=== PATIENT | female | born 1950 | race Caucasian/White ===

== ENCOUNTER → 2016-09-04 | Outpatient (CLI) | payer MEDICARE ==
[~2016-09-04] MED LIST: ALEVE 220MG220 MG PO; ASPI325T6 PO; CELEBREX 200MG200 MG PO; FERROUS SU325 MG/TAB PO; FOLIC ACID0.4 MG PO; NORCO 325 MG-7.1 TAB PO; OMEGA 31000 MG; OSCAL 500 TAB500 MG PO; PREMARIN 0.9MG0.9 MG PO; SENOKOT S 50 MG1 TAB PO; ULTRAM 50MG TAB50 MG PO; VITAMIN C500 MG PO; VITAMIN D 400400 IU PO
== END ==
LOC: MC.RAD 10:12
DX: Z12.31 Encounter for screening mammogram for malignant neoplasm of breast (principal); R92.8 Other abnormal and inconclusive findings on diagnostic imaging of breast; Z80.3 Family history of malignant neoplasm of breast

== ENCOUNTER → 2016-09-11 | Outpatient (CLI) | payer MEDICARE | LOC: MC.RAD 10:30 | DX: R92.8 Other abnormal and inconclusive findings on diagnostic imaging of breast (principal); Z80.3 Family history of malignant neoplasm of breast ==

== ENCOUNTER 2016-09-15 09:16 | Inpatient (IN) | payer MEDICARE, OTHER ==
[~2016-09-15] VITALS: Ht 162.6 cm; Wt 61.2 kg
[2016-10-10] MEDS ORDERED: ALEVE 220MG220 MG PO (12:30)
[2016-10-10] MEDS ORDERED: OSCAL 500 TAB500 MG PO (12:30)
[2016-10-10] MEDS ORDERED: OMEGA 31000 MG (12:31)
[2016-10-10] MEDS ORDERED: PREMARIN 0.9MG0.9 MG PO (12:31)
[2016-10-10] MEDS ORDERED: VITAMIN D 400400 IU PO (12:31)
[2016-10-13] VITALS (11 sets, daily range): BP systolic 84–118; BP diastolic 44–77; PULSE 56–78; TEMP 97.1–98.6
[2016-10-13] MEDS ORDERED: VITAMIN C500 MG PO (06:09)
[2016-10-13] MEDS ORDERED: FERROUS SU325 MG/TAB PO (06:09)
[2016-10-13] MEDS ORDERED: FOLIC ACID0.4 MG PO (06:10)
[2016-10-14] VITALS (7 sets, daily range): BP systolic 92–125; BP diastolic 39–60; PULSE 63–85; TEMP 97.4–98.5
[2016-10-14 07:18] LABS: HEMATOCRIT 30.8 % (37.0-47.0); HEMOGLOBIN 9.9 g/dl (12.5-16.0)
[2016-10-15 04:48] VITALS: BP 98/41; PULSE 74; TEMP 98
[2016-10-15 06:41] LABS: HEMATOCRIT 27.7 % (37.0-47.0); HEMOGLOBIN 9.1 g/dl (12.5-16.0)
[2016-10-15 15:29] VITALS: BP 84/49; PULSE 85; TEMP 98.2
[2016-10-15 17:30] VITALS: BP 99/45
[2016-10-15 19:26] VITALS: BP 99/33; PULSE 88; TEMP 98.8
[2016-10-16 03:14] VITALS: BP 100/53; PULSE 86; TEMP 98.4
[2016-10-16 06:37] LABS: HEMATOCRIT 24.9 % (37.0-47.0); HEMOGLOBIN 8.1 g/dl (12.5-16.0)
[2016-10-16] MEDS ORDERED: ASPI325T6 PO (07:23)
[2016-10-16] MEDS ORDERED: CELEBREX 200MG200 MG PO (07:24)
[2016-10-16] MEDS ORDERED: NORCO 325 MG-7.1 TAB PO (07:24)
[2016-10-16] MEDS ORDERED: ULTRAM 50MG TAB50 MG PO (07:25)
[2016-10-16] MEDS ORDERED: SENOKOT S 50 MG1 TAB PO (07:25)
[2016-10-16 07:35] VITALS: BP 92/51; PULSE 82; TEMP 97.9
[2016-10-16 11:34] VITALS: BP 101/40; PULSE 77; TEMP 97.8
== END 2016-10-16 13:45 | disposition home or self-care (01) | DRG 470 ==
LOC: JCC 10-13 05:17
PROVIDERS: Orthopaedic Surgery
PROC: 0SR90JA Replacement of Right Hip Joint with Synthetic Substitute, Uncemented, Open Approach (ICD-10-PCS; principal; 2016-10-13 07:30)
DX: M16.11 Unilateral primary osteoarthritis, right hip (principal)
CPT/HCPCS: A4315; A9284; C1776; J0690; J2250; J2270; J2405; J2550; J2704; J2765; J3010; J7120

== ENCOUNTER → 2016-10-02 | Outpatient (CLI) | payer MEDICARE, OTHER | LOC: COL.LAB 10:35 | DX: Z01.812 Encounter for preprocedural laboratory examination (principal); M25.851 Other specified joint disorders, right hip ==

== ENCOUNTER → 2016-10-17 | Outpatient (CLI) | payer MEDICARE, OTHER | LOC: COL.VAS 13:46 | DX: M79.604 Pain in right leg (principal); M79.89 Other specified soft tissue disorders; Z98.890 Other specified postprocedural states ==

== ENCOUNTER → 2018-05-13 | Outpatient (CLI) | payer MEDICARE, OTHER | LOC: COL.RAD 09:32 | DX: Z13.6 Encounter for screening for cardiovascular disorders (principal); Z82.49 Family history of ischemic heart disease and other diseases of the circulatory system ==

== ENCOUNTER → 2018-11-02 | Outpatient (CLI) | payer MEDICARE, OTHER | LOC: MC.RAD 11:09 | DX: Z12.31 Encounter for screening mammogram for malignant neoplasm of breast (principal); N64.89 Other specified disorders of breast ==

== ENCOUNTER → 2018-11-04 | Outpatient (CLI) | payer MEDICARE, OTHER | LOC: MC.RAD 10:54 | DX: N64.89 Other specified disorders of breast (principal); N60.02 Solitary cyst of left breast | CPT/HCPCS: G0279 ==

== ENCOUNTER → 2019-05-27 | Outpatient (CLI) | payer MEDICARE, OTHER | LOC: COL.RAD 08:12 | DX: Z82.49 Family history of ischemic heart disease and other diseases of the circulatory system (principal) ==

== ENCOUNTER → 2019-11-11 | Outpatient (CLI) | payer MEDICARE, OTHER | LOC: MC.RAD 07:26 | DX: Z12.31 Encounter for screening mammogram for malignant neoplasm of breast (principal) ==

== ENCOUNTER → 2020-11-12 | Outpatient (CLI) | payer MEDICARE | LOC: MC.RAD 09:15 | DX: Z12.31 Encounter for screening mammogram for malignant neoplasm of breast (principal) ==

== ENCOUNTER 2021-08-27 13:02 | Outpatient (CLI) | payer MEDICARE ==
[~2021-08-27] VITALS: Ht 162.6 cm; Wt 61.0 kg
[2021-08-27] VITALS (7 sets, daily range): BP systolic 113–135; BP diastolic 63–73; PULSE 70–78; TEMP 96.9
[2021-08-27] MEDS ORDERED: CALCIUM 600 PLU1 TAB PO (14:09)
--- NOTE | 2021-08-27 15:30 | NUR ---
Pt tolerated infusion and 1 hr observation period without issue. INT DC'd with catheter intact. She is escorted out to ED entrance with steady gait.
== END 2021-08-27 15:30 | disposition home or self-care (01) ==
LOC: EUO 13:02
DX: U07.1 COVID-19 (principal)
CPT/HCPCS: M0245

== ENCOUNTER → 2021-12-18 | Outpatient (CLI) | payer MEDICARE ==
[~2021-12-18] MED LIST changes: +CALCIUM 600 PLU1 TAB PO
== END ==
LOC: MC.RAD 07:08
DX: Z12.31 Encounter for screening mammogram for malignant neoplasm of breast (principal)

== ENCOUNTER → 2024-02-09 | Outpatient (CLI) | payer MEDICARE, OTHER | LOC: MC.RAD 13:54 | DX: Z12.31 Encounter for screening mammogram for malignant neoplasm of breast (principal) ==